=== PATIENT | male | born 2000 | race Caucasian/White ===

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

== ENCOUNTER 2022-02-19 16:52 | Outpatient (CLI) | payer BC, SELFPAY ==
[2022-02-19 17:20] LABS: Basophils Absolute Auto 0.04 K/mm3 (0.00-0.10); Basophils Percent Auto 0.5 % (0.0-1.0); Eosinophils Percent Auto 1.3 % (1.0-6.0); Hematocrit 47.3 % (40.0-54.0); Hemoglobin 16.4 g/dL (14.0-18.0); Immature Granulocyte Absolute 0.02 K/mm3 (0.00-0.00); Immature Granulocyte Percent A 0.3 % (0.0-0.0); Lymphocytes Absolute Auto 2.27 K/mm3 (1.10-4.50); Mean Corpuscular HGB Conc 34.7 g/dL (32.0-36.0); Mean Corpuscular Hemoglobin 31.8 pg (27.0-31.0); Mean Corpuscular Volume 91.8 fL (78.0-102.0); Mean Platelet Volume 10.2 fl (8.7-11.0); Monocytes Absolute Auto 0.65 K/mm3 (0.10-0.90); Monocytes Percent Auto 8.6 % (2.0-11.0); Neutrophils Absolute Auto 4.5 K/mm3 (1.7-7.2); Neutrophils Percent Auto 59.3 % (50.0-70.0); Platelet Count Result 202 K/mm3 (150-420); Red Blood Count 5.15 M/mm3 (4.70-6.10); Red Cell Distribution Width 11.2 % (11.6-14.4); White Blood Count 7.6 K/mm3 (4.8-10.8)
[2022-02-19 17:29] LABS: Alanine Aminotransferase 68 U/L (16-63); Albumin Level 4.4 g/dL (3.4-5.0); Alkaline Phosphatase 60 U/L (46-116); Anion Gap 7 mmol/L (8-16); Aspartate Amino Transferase 40 U/L (15-37); Bilirubin,Total 0.4 mg/dL (0.00-1.00); Blood Urea Nitrogen 17 mg/dL (7-18); Carbon Dioxide 26 mmol/L (21-32); Chloride 103 mmol/L (98-108); Estimated Glomerular Filt Rate > 60; Glucose 78 mg/dL (70-99); Magnesium 1.9 mg/dL (1.8-2.4); Osmolality Calculated 282 mOsm/kg (285-295); Potassium 3.8 mmol/L (3.5-5.1); Sodium 136 mmol/L (136-145); Total Protein 7.5 g/dL (6.4-8.2)
[2022-02-23 00:20] LABS: H pylori, Urea Breath DETECTED (NOT DETECTED)
== END 2022-02-19 16:53 | disposition home or self-care (01) ==
LOC: CHSLAB 16:54
PROVIDERS: PCP Nurse Practitioner Family; Visit Provider Nurse Practitioner Family
DX: R11.10 Vomiting, unspecified (principal); E83.42 Hypomagnesemia; K21.9 Gastro-esophageal reflux disease without esophagitis
CPT/HCPCS: 36415; 80053; 83013; 83735; 85025

== ENCOUNTER 2022-12-16 15:43 | Outpatient (CLI) | payer BC, SELFPAY ==
[2022-12-16 16:03] LABS: Hematocrit 45.7 % (40.0-54.0); Mean Corpuscular Hemoglobin 31.4 pg (27.0-31.0); Mean Corpuscular Volume 89.8 fL (78.0-102.0); Mean Platelet Volume 9.9 fl (8.7-11.0); Platelet Count Result 214 K/mm3 (150-420); Red Blood Count 5.09 M/mm3 (4.70-6.10); Red Cell Distribution Width 11.2 % (11.6-14.4); White Blood Count 6.1 K/mm3 (4.8-10.8)
[2022-12-16 16:34] LABS: Lipase 25 U/L (16-77)
[2022-12-16 16:47] LABS: Alanine Aminotransferase 71 U/L (16-63); Albumin Level 4.8 g/dL (3.4-5.0); Alkaline Phosphatase 65 U/L (46-116); Anion Gap 12 mmol/L (8-16); Aspartate Amino Transferase 40 U/L (15-37); Bilirubin,Total 0.8 mg/dL (0.00-1.00); Blood Urea Nitrogen 16 mg/dL (7-18); Calcium 9.4 mg/dL (8.5-10.1); Carbon Dioxide 27 mmol/L (21-32); Chloride 103 mmol/L (98-108); Cholesterol 145 mg/dL (0-200); Estimated Glomerular Filt Rate > 60; Glucose 87 mg/dL (70-99); HDL Direct 51 mg/dL (40-60); LDL Cholesterol Calculated 72 mg/dL (<130); Osmolality Calculated 294 mOsm/kg (285-295); Sodium 142 mmol/L (136-145); Thyroid Stimulating Hormone 1.23 uIU/mL (0.36-3.74); Total Protein 7.4 g/dL (6.4-8.2); Triglycerides 111 mg/dL (0-150)
[2022-12-20 00:21] LABS: H pylori, Urea Breath DETECTED (NOT DETECTED)
== END 2022-12-16 15:44 | disposition home or self-care (01) ==
PROVIDERS: PCP Nurse Practitioner Family; Visit Provider Nurse Practitioner Family
DX: K21.9 Gastro-esophageal reflux disease without esophagitis (principal); R07.89 Other chest pain; R11.10 Vomiting, unspecified; A04.8 Other specified bacterial intestinal infections
CPT/HCPCS: 36415; 80053; 80061; 83013; 83690; 84443; 85027

== ENCOUNTER 2022-12-18 16:04 | Outpatient (CLI) | payer BC, SELFPAY ==
[2022-12-18 16:39] LABS: Troponin I 4.9 ng/L (0.00-60.4)
--- NOTE | 2022-12-24 12:15 | WPDHOLTEREM ---
Holter/Event Monitor Holter/Event Monitor Date of procedure: 12/18/22 Holter/Event Procedure: 48 Hr Holter Monitor Indications: Chest pain Conclusion: 1. 48 hour holter monitor on 12/18/22. 2. Underlying rhythm is sinus rhythm. HR range 41-150 bpm; average 81 bpm. HR at 150 bpm was at 00:46. HR at 41 bpm was at 17:49. 3. There are 72 premature supraventricular complexes, 14 supraventricular couplets, and 9 supraventricular trigeminy. No supraventricular tachycardia. 4. There are 2 premature ventricular complexes. No ventricular tachycardia. 5. No sinoatrial or atrioventricular blocks. No significant pauses greater than 2 seconds. 6. No symptoms available for correlation.
== END 2022-12-18 16:05 | disposition home or self-care (01) ==
LOC: CHSCARD 16:08
PROVIDERS: PCP Nurse Practitioner Family; Visit Provider Nurse Practitioner Family
DX: R94.31 Abnormal electrocardiogram [ECG] [EKG] (principal); R07.89 Other chest pain
CPT/HCPCS: 36415; 84484; 93225; 93226

== ENCOUNTER 2023-07-09 06:42 | Emergency (ER) | payer OTHER, BC, SELFPAY ==
--- NOTE | ~2023-07-09 | CT_ITS ---
EXAMINATION: CT abdomen pelvis w con INDICATION: Epigastric pain TECHNIQUE: Computed tomographic images of the abdomen and pelvis were obtained after the administrati on of 100 cc of Omnipaque 350 intravenous contrast. The dose-length product (DLP) was 695.93 mGy-cm. Automated exposure control and iterative reconstruction technique were employed. COMPARISON: None available FINDINGS: The lung bases are clear. The heart size is normal. The liver, spleen, pancreas, gallbladde r, and adrenal glands are normal. The kidneys are unremarkable. No pathologically enlarged abdominal or pelvic lymph nodes are identified. No free intraperitoneal gas or evidence of bowel obstruction. T he appendix is normal. IMPRESSION: 1. No CT correlate for the patient's symptoms. Reviewed, dictated and finalized at [facility]
[2023-07-09 06:50] VITALS: BP 137/78; PULSE 75; RESP 18; TEMP 36.3; O2SAT 100
--- NOTE | 2023-07-09 06:54 | ED_ITS ---
HPI - Abdominal Pain General Chief Complaint: Abdominal Pain Stated Complaint: abdominal pain Related Data Allergies Allergy/AdvReac Type Severity Reaction Status Date / Time metoclopramide [From Reglan] Allergy Intermediate Agitated Verified 03/25/23 08:42 [facility] Past Medical History Medical History Adopted [facility] 2011 Diarrhea Elbow pain GERD (gastroesophageal reflux disease) Healthy adolescent Olecranon bursitis of left elbow Surgical History Surgical History History of incision and drainage pilonidal cyst Hx of colonoscopy Polyp , hemorrhoids and fissure Family History Family History Father Adopted (not a blood relative) Mother Adopted (not a blood relative) Social History Social History Years smoked: 0.5 Smoking status: Current every day smoker Tobacco type: e-cigarettes/vaping Alcohol intake: current Alcohol use details: social Substance use: never Substance use type: does not use Living arrangements: alone Additional living arrangements comments: Lives with mother and father. Occupation/Education: student Additional occupation/education comments: [employer] Gender identity (if verbalized by the patient): Male Spiritual care concerns: No Discharge Plan Discharge Prescriptions: No Action amoxicillin-pot clavulanate [Augmentin] 500-125 mg tablet 1 tablet PO Q8H Qty: 15 0RF Follow-up/Referrals: UNKNOWN,DOCTOR [Primary Care Provider] -
--- NOTE | 2023-07-09 07:01 | PC.NURSE ---
patient awake and alert, phlebotomy at bedside for blood draw. patient report given to JERE Jacobs who is assuming care of this patient.
[2023-07-09 07:08] LABS: Basophils Absolute Auto 0.04 K/mm3 (0.00-0.10); Basophils Percent Auto 0.5 % (0.0-1.0); Eosinophils Absolute Auto 0.11 K/mm3 (0.02-0.50); Eosinophils Percent Auto 1.3 % (1.0-6.0); Hematocrit 46.7 % (40.0-54.0); Hemoglobin 15.9 g/dL (14.0-18.0); Immature Granulocyte Absolute 0.03 K/mm3 (0.00-0.00); Immature Granulocyte Percent A 0.4 % (0.0-0.0); Lymphocytes Absolute Auto 0.94 K/mm3 (1.10-4.50); Lymphocytes Percent Auto 11.4 % (18.0-42.0); Mean Corpuscular Hemoglobin 31.1 pg (27.0-31.0); Mean Corpuscular Volume 91.4 fL (78.0-102.0); Mean Platelet Volume 9.8 fl (8.7-11.0); Monocytes Absolute Auto 0.66 K/mm3 (0.10-0.90); Neutrophils Absolute Auto 6.5 K/mm3 (1.7-7.2); Neutrophils Percent Auto 78.4 % (50.0-70.0); Platelet Count Result 176 K/mm3 (150-420); Red Blood Count 5.11 M/mm3 (4.70-6.10); Red Cell Distribution Width 11.5 % (11.6-14.4); White Blood Count 8.2 K/mm3 (4.8-10.8)
--- NOTE | 2023-07-09 07:11 | ECG_ITS ---
Measurements Intervals [place] Rate: 78 P: 53 TN: 151 QRS: 19 QRSD: 109 T: 47 QT: 369 QTc: 421 Interpretive Statements SINUS RHYTHM NORMAL ECG NO PREVIOUS ECG AVAILABLE FOR COMPARISON Electronically Signed On 07-09-2023 14:10:38 [employer] by Arie Baez M.D.
[2023-07-09] MEDS: LACTATED RINGERS 1,000 ML 999 ML IV CONT (07:12)
[2023-07-09 07:22] LABS: Partial Thromboplastin Time 26.2 SEC (23.90-30.70); Prothrombin Time 11.2 Seconds (9.50-12.10)
[2023-07-09] MEDS: KETOROLAC 30 MG/ML VIAL (*BKC) IV PUSH (07:24)
[2023-07-09] MEDS: PANTOPRAZOLE SODIUM IV 40 MG VIAL 80 MG IV PUSH (07:24)
[2023-07-09 07:25] LABS: Alanine Aminotransferase 77 U/L (16-63); Albumin Level 4.1 g/dL (3.4-5.0); Alkaline Phosphatase 59 U/L (46-116); Anion Gap 3 mmol/L (8-16); Aspartate Amino Transferase 45 U/L (15-37); Bilirubin,Total 0.6 mg/dL (0.00-1.00); Blood Urea Nitrogen 19 mg/dL (7-18); Calcium 9.2 mg/dL (8.5-10.1); Carbon Dioxide 37 mmol/L (21-32); Chloride 100 mmol/L (98-108); Estimated CRCL calculation 102 ml/min; Estimated Glomerular Filt Rate > 60; Glucose 102 mg/dL (70-99); Lipase 35 U/L (16-77); Osmolality Calculated 292 mOsm/kg (285-295); Potassium 3.8 mmol/L (3.5-5.1); Sodium 140 mmol/L (136-145); Total Protein 7.2 g/dL (6.4-8.2)
[2023-07-09 07:29] LABS: Lactic Acid Reflex 1.3 mmol/L (0.4-2.0)
[2023-07-09 08:05] LABS: Appearance Urine Clear (Clear); Bilirubin Urine Negative (Negative); Blood Urine Negative (Negative); Color Urine Light Yellow (Yellow); Glucose Urine UA Negative (Negative); Ketones Urine Negative (Negative); Leukocyte Esterase Ur Negative LEU/UL (Negative); Nitrate Urine Negative (Negative); Protein Urine Negative (Negative); pH Urine 8.5 (5.0-8.0)
[2023-07-09 08:08] LABS: Add Urine Microscopic? NO
--- NOTE | 2023-07-09 08:23 | ED.ABDPAIN ---
HPI - Abdominal Pain General Chief Complaint: Abdominal Pain Stated Complaint: abdominal pain Time Seen by Provider: 07/09/23 07:04 Source: patient Mode of arrival: ambulatory Limitations: no limitations History of Present Illness HPI narrative: this is a 23 year male who presents with some crampy abdominal pain epigastric area and periumbilical with non localization, no flank pain no fever chills patient did have an episode vomiting this morning, no dysuria no hematuria diarrhea or constipation. MD elicited complaint: abdominal pain Pertinent past history: none Onset (ago): day(s) Pain Consistency: intermittent Location: epigastric and periumbilical Severity: mild Quality: stabbing Radiation: epigastric Migration to: periumbilical Exacerbating factors: nothing Relieving factors: nothing Related Data Allergies Allergy/AdvReac Type Severity Reaction Status Date / Time metoclopramide [From Reglan] Allergy Intermediate Agitated Verified 07/09/23 06:57 Review of Systems Review of Systems: All systems reviewed & are unremarkable except as noted in HPI and below PMFSH Past Medical History Medical History Ad[facility]ed [facility] 2011 Diarrhea Elbow pain GERD (gastroesophageal reflux disease) Healthy adolescent Olecranon bursitis of left elbow Surgical History Surgical History History of incision and drainage pilonidal cyst Hx of colonoscopy Polyp , hemorrhoids and fissure Family History Family History Father Adopted (not a blood relative) Mother Adopted (not a blood relative) Social History Social History Years smoked: 0.5 Smoking status: Current every day smoker Tobacco type: e-cigarettes/vaping Alcohol intake: current Alcohol use details: social Substance use: never Substance use type: does not use Living arrangements: alone Additional living arrangements comments: Lives with mother and father. Occupation/Education: student Additional occupation/education comments: [employer] Gender identity (if verbalized by the patient): Male Spiritual care concerns: No Exam Const: General: healthy appearing and no acute distress Nutritional Appearance: well nourished Orientation/consciousness: patient oriented x3 Neck: Neck: normal visual inspection, no lymphadenopathy and no meningeal signs Chest: Chest palpation & inspection: normal inspection of the chest Resp: Effort & Inspection: normal respiratory effort Auscultation: clear to auscultation bilaterally Cardio: Rate: regular rate Rhythm: regular rhythm GI: GI Palp: Yes Soft to palpation and Yes Tenderness to palpation present (GI) : General: Yes bladder normal to palpation Back/Spine/Pelvis: Back: no CVA tenderness Neuro: General: patient oriented x3 and moves all extremities Course Course Emergency Course: Patient had labs performed which were all within normal limits UA was normal, patient received IV fluids IV Toradol and IV Protonix and reassessment of patient's discomfort has improved currently no nausea vomiting, CT scan reviewed with patient and family. Vital Signs Vital signs: Vital Signs Temperature 36.3 C L 07/09/23 06:50 Pulse Rate 75 07/09/23 06:50 Respiratory Rate 18 07/09/23 06:50 Blood Pressure 137/78 07/09/23 06:50 Pulse Oximetry 100 07/09/23 06:50 Oxygen Delivery Room Air 07/09/23 06:50 Temperature 36.3 C L 07/09/23 06:50 Pulse Rate 75 07/09/23 06:50 Respiratory Rate 18 07/09/23 06:50 Blood Pressure 137/78 07/09/23 06:50 Pulse Oximetry 100 07/09/23 06:50 Oxygen Delivery Room Air 07/09/23 06:50 MDM - Abdominal Pain Lab Data 07/09/23 07:02 07/09/23 07:02 Labs: Lab Results 07/09/23
[2023-07-09 08:41] VITALS: BP 128/64; PULSE 72; RESP 20; TEMP 36.6; O2SAT 97
== END 2023-07-09 08:50 | disposition home or self-care (01) ==
PROVIDERS: Internal Medicine Critical Care Medicine; Emergency Provider Emergency Medicine
DX: K21.9 Gastro-esophageal reflux disease without esophagitis (principal); F17.210 Nicotine dependence, cigarettes, uncomplicated
CPT/HCPCS: 36415; 74177; 80053; 81003; 83605; 83690; 85025; 85610; 85730; 93005; 96361; 96374; 96375; 99284; C9113; J1885; J7120; Q9967